=== PATIENT | female | born 1975 | race Caucasian/White ===

== ENCOUNTER 2017-11-25 00:19 | Emergency (ER) | payer OTHER ==
[~2017-11-25] VITALS: Ht 165.1 cm; Wt 69.9 kg
[2017-11-25 00:23] VITALS: BP 148/91
[2017-11-25] MEDS ORDERED: LORAZEPAM 1 MG TABLET ONE (00:58)
[2017-11-25] MEDS ORDERED: LORAZEPAM 1 MG TABLET PO ONE (01:00)
== END 2017-11-25 02:21 | disposition home or self-care (01) ==
LOC: ER 00:21
DX: R00.2 Palpitations (principal); F19.10 Other psychoactive substance abuse, uncomplicated; F41.9 Anxiety disorder, unspecified
CPT/HCPCS: 99283; A4606; Z7610

== ENCOUNTER 2021-03-09 18:46 | Emergency (ER) | payer MEDICAID, OTHER ==
[~2021-03-09] VITALS: Ht 154.9 cm; Wt 63.5 kg
--- NOTE | 2021-03-09 19:18 | NUR ---
CALLED TO TRIAGE, NO ANSWER. NOT IN WAITING ROOM
--- NOTE | 2021-03-09 19:53 | NUR ---
PT BIBSELF C/O WORSENIN SOB SINCE SUNDAY. PT AAOX4 BREATHING EVENLY, BUT QUICKLY. PER PT HER INHALER WAS NOT EFFECTIVE. MD AT BEDSIDE FOR EVAL. SKIN IS WARM AND DRY. PT ATTACHED TO MONITOR AND POX. 96% ON RA. PT GIVEN BLANKET AND CALL LIGHT WITHIN REACH
[2021-03-09] MEDS ORDERED: ALBUTEROL FS 2.5 MG/3 ML VIAL.NEB NEB ONE (20:00)
[2021-03-09] MEDS ORDERED: IPRATROPIUM NEB FS 0.5 MG/2.5 ML AMPUL.NEB NEB ONE (20:00)
[2021-03-09] MEDS ORDERED: methylPREDNISolone SOD SUCC 125 MG/2ML VIAL IV ONE (20:00)
--- NOTE | 2021-03-09 20:05 | NUR ---
RT AT BEDSIDE
[2021-03-09] MEDS ORDERED: IPRATROPIUM NEB FS 0.5 MG/2.5 ML AMPUL.NEB ONE (20:12)
[2021-03-09] MEDS ORDERED: ALBUTEROL FS 2.5 MG/3 ML VIAL.NEB ONE (20:12)
[2021-03-09] MEDS ORDERED: methylPREDNISolone SOD SUCC 125 MG/2ML VIAL ONE (20:27)
[2021-03-09] MEDS ORDERED: Magnesium 1GM/D5W 100ML PREMIX 200 ML IV ONE ×2 (21:00→21:13)
[2021-03-09] MEDS ORDERED: PRED20TA PO ×2 (22:00→22:57)
[2021-03-09] MEDS ORDERED: AZIT250T13 PO (22:00)
[2021-03-09] MEDS ORDERED: hydrALAZINE HCL IV 20 MG VIAL IV ONE (22:00)
[2021-03-09] MEDS ORDERED: ALBU2.5V13 NEB (22:00)
[2021-03-09] MEDS ORDERED: ALBU18HF2 INH (22:00)
[2021-03-09] MEDS ORDERED: hydrALAZINE HCL IV 20 MG VIAL ONE (22:06)
[2021-03-09] MEDS ORDERED: IBUPROFEN 600 MG TABLET PO ONE (23:00)
[2021-03-09] MEDS ORDERED: IBUPROFEN 600 MG TABLET ONE (23:02)
--- NOTE | 2021-03-09 23:20 | NUR ---
Patient discharged to home in stable condition. Written and verbal after care instructions given. Patient verbalizes understanding of instruction. IV removed. Catheter intact and site benign. Pressure and 4x4 applied to site. No bleeding noted.pt ambulatory with a steady gait
[2021-03-10 00:52] VITALS: BP 156/85
== END 2021-03-09 23:25 | disposition home or self-care (01) ==
LOC: ER 18:51
DX: J45.909 Unspecified asthma, uncomplicated (principal); I10 Essential (primary) hypertension; Z20.822 Contact with and (suspected) exposure to COVID-19
CPT/HCPCS: 71045; 87426; 94644; 96365; 96375; 99285; C9803; J0360; J2930; J3475